=== PATIENT | female | born 1995 | race African-American/Black ===

== ENCOUNTER 2020-12-26 20:10 | Emergency (ER) | payer OTHER ==
[~2020-12-26] VITALS: Ht 162.6 cm; Wt 124.7 kg
[2020-12-26] MEDS ORDERED: PENICILLIN V P500 MG PO (20:48)
[2020-12-26] MEDS ORDERED: TRAMADOL 50 MG50 MG PO (20:48)
[2020-12-26 20:55] VITALS: BP 138/84
== END 2020-12-26 20:56 | disposition home or self-care (01) ==
LOC: ER 20:10
DX: K02.9 Dental caries, unspecified (principal)